=== PATIENT | female | born 1980 | race Hispanic/Latino ===

== ENCOUNTER 2022-08-03 05:35 | Day surgery (SDC) | payer MEDICAID, OTHER ==
[2022-07-30 10:42] LABS: BASOPHILS % (AUTO) 0.6 % (0.0-5.0); EOSINOPHILS % (AUTO) 0.9 % (0.0-8.0); HEMATOCRIT 39.6 % (36-48); LYMPHOCYTES % (AUTO) 21.1 % (21.0-51.0); MEAN CORPUSCULAR HGB CONC 32.8 g/dL (32.0-36.0); MEAN CORPUSCULAR VOLUME 97.5 fL (79-99); MONOCYTES % (AUTO) 6.6 % (3.0-13.0); NEUTROPHILS % (AUTO) 70.5 % (40.0-77.0); PLATELET COUNT (AUTO) 287 K/uL (130-400); RED BLOOD CELL COUNT(AUTO) 4.06 MIL/uL (4.00-5.50); RED CELL DISTRIBUTION WIDTH 13.2 % (11.0-15.5); WHITE BLOOD COUNT (AUTO) 6.6 K/uL (4.8-10.8)
[2022-07-30 10:48] LABS: APPEARANCE,URINE CLEAR (CLEAR); BILIRUBIN,URINE NEGATIVE (NEGATIVE); COLOR,URINE YELLOW (YELLOW); GLUCOSE, URINE (UA) NEGATIVE (NEGATIVE); KETONES,URINE NEGATIVE (NEGATIVE); LEUKOCYTE ESTERASE ,URINE TRACE (NEGATIVE); NITRATE,URINE NEGATIVE (NEGATIVE); OCCULT BLOOD,URINE NEGATIVE (NEGATIVE); PROTEIN,URINE NEGATIVE (NEGATIVE); UROBILINOGEN,URINE 0.2 mg/dL (0.2-1.0)
[2022-07-30 11:00] VITALS: BP 115/70
[2022-07-30 11:09] LABS: BACTERIA,URINE Rare /HPF (None Seen); RBC,URINE 0-1 /HPF (0-1); SQUAMOUS EPITHELIAL CELL,UR Rare /HPF (0-2); WBC,URINE 0-1 /HPF (0-1)
[~2022-08-03] VITALS: Ht 157.5 cm; Wt 61.2 kg
[2022-08-03] VITALS (16 sets, daily range): BP systolic 108–124; BP diastolic 65–78
[~2022-08-03 05:35] MED LIST: BIOTIN PO
[2022-08-03] MEDS ORDERED: LACTATED RINGERS 1000ML 1,000 ML IV ONE (06:06)
[2022-08-03] MEDS ORDERED: STRONG IODINE SOLN 14ML BOTTLE ONE (07:10)
[2022-08-03] MEDS ORDERED: ACETIC ACID 0.25% 1,000 ML IRRIG.SOLN ONE (07:10)
[2022-08-03] MEDS ORDERED: LIDOCAINE PF 100MG/5ML (2%) SYRINGE 5ML ONE (07:17)
[2022-08-03] MEDS ORDERED: MIDAZOLAM HCL 1 MG/ML 2ML VIAL ONE (07:17)
[2022-08-03] MEDS ORDERED: GLYCOPYRROLATE 1 MG/5 ML SYRINGE ONE (07:17)
[2022-08-03] MEDS ORDERED: PROPOFOL 10 MG/ML 20ML VIAL IV ONE (07:17)
[2022-08-03] MEDS ORDERED: FENTANYL CITRATE PF 50 MCG/1 ML 2ML VIAL ONE (07:18)
[2022-08-03] MEDS ORDERED: ROCURONIUM 10MG/1ML SYR 10 MG/ML ML ONE (07:18)
[2022-08-03] MEDS ORDERED: ONDANSETRON 4MG INJ ONE ×2 (07:52→08:29)
[2022-08-03] MEDS ORDERED: NEOSTIGMINE 5MG/5ML SYR IV ONE (08:01)
== END 2022-08-03 10:20 | disposition home or self-care (01) ==
LOC: DAH 05:35
PROVIDERS: ATTEND Obstetrics & Gynecology
DX: N87.1 Moderate cervical dysplasia (principal); K21.9 Gastro-esophageal reflux disease without esophagitis; Z98.891 History of uterine scar from previous surgery; Z80.0 Family history of malignant neoplasm of digestive organs; Z80.6 Family history of leukemia; Z98.890 Other specified postprocedural states; Z79.899 Other long term (current) drug therapy
CPT/HCPCS: 86900 ×2; 87426; 84703; 85025; 86850 ×2; 86901 ×2; 81001; 36415 ×2; 57520; 81025; A6260; A4663; A4351; J7120; J3010; J3490; J2710; J2001; J2250; J2704; J2405 ×2; A4215; A4223; A4222; A4221

== ENCOUNTER 2023-10-08 07:22 | Emergency (ER) | payer BC ==
[~2023-10-08] VITALS: Ht 157.5 cm; Wt 75.7 kg
[~2023-10-08 07:22] MED LIST changes: +CYCL10TA16 PO; +NAPR-1174 PO
[2023-10-08] MEDS ORDERED: MORPHINE 4 MG SYG IM ONE (08:30)
[2023-10-08 09:21] VITALS: BP 148/74; PULSE 74; RESP 16; O2SAT 100
[2023-10-08] MEDS ORDERED: DEXAMETHASONE SOD PHOSPHATE 4 MG/ML 1ML VIAL IM ONE (10:00)
[2023-10-08] MEDS ORDERED: KETOROLAC 60 MG VIAL (30MG/ML) IM ONE (10:00)
[2023-10-08] MEDS ORDERED: CYCL-309 PO (10:03)
[2023-10-08] MEDS ORDERED: PRED20TA3 PO (10:03)
[2023-10-08] MEDS ORDERED: IBUP-2070 PO (10:03)
== END 2023-10-08 10:30 | disposition home or self-care (01) ==
LOC: EDH 07:22
DX: M47.22 Other spondylosis with radiculopathy, cervical region (principal); Z79.899 Other long term (current) drug therapy; Z98.890 Other specified postprocedural states
CPT/HCPCS: 99284; 72125; 96372 ×3; J1100; J2270; J1885